=== PATIENT | female | born 1995 | race Caucasian/White ===

== ENCOUNTER 2016-12-18 18:12 | Emergency (ER) | payer OTHER ==
[2016-12-18 20:10] LABS: Hematocrit 42.7 % (37.0-47.0); Hemoglobin 14.4 gm/dL (12.5-16.0); Mean Cell Volume 86.3 fl (78-100); Mean Corpuscular Hemoglobin 29.1 pg (27-31); Mean Corpuscular Hgb Conc 33.7 g/dl (32-36); Mean Platelet Volume 9.4 fl (6.0-9.5); Neutrophil # 5.8 K/mm3 (1.3-6.0); Platelet Count 272 K/mm3 (150-450); Red Blood Count 4.95 M/mm3 (4.2-5.4); Red Cell Distribution Width 12.5 % (11.5-14.0); White Blood Count 9.6 K/mm3 (4.0-10.5)
[2016-12-18 20:21] LABS: Albumin * 4.4 gm/dl (3.4-5.0); Anion Gap 15.5 mmol/L (6.8-13.8); BUN/Creatinine Ratio 20.9 (9.0-21.6); Bilirubin, Total 0.4 mg/dL (0.0-1.1); Ca. Corrected For Albumin 9.4 mg/dL (8.4-10.2); Carbon Dioxide 26.6 mmol/L (24-32.6); Potassium 4.1 mmol/L (3.4-4.6); Total Protein 8.5 gm/dL (6.2-8.2)
--- NOTE | 2016-12-18 20:41 | ERNOTE ---
Abdominal HPI - Narrative Date of Service: 12/18/16 - General Chief Complaint: Abdominal Pain Time Seen by Provider: 12/18/16 20:32 Source: patient Exam Limitations: no limitations - Immun/Allergies/Home Medications Immunizatons: IMMUNIZATION HX Immunizations Up to Date Yes History of Influenza Vaccine Yes Hx Pneumococcal Vaccination No Allergies/Adverse Reactions: Allergies No Known Allergies Allergy (Verified 11/13/15 18:47) Home Medications: HOME MEDICATIONS metFORMIN HCL [Glucophage] 500 mg PO DAILY 11/13/15 [Last Taken Unknown] Lamotrigine [Lamictal Xr] 25 mg PO DAILY 12/18/16 [Last Taken Unknown] Ondansetron [Zofran Odt] 4 mg PO Q6H PRN #14 tab 12/18/16 [Last Taken Unknown] - Pain Score Pain Score #1 Pain Score: 7 Abdominal Pain Onset Location: RUQ, other - R. back - History of Present Illness Narrative: 21yo, F, presents to ED for evaluation of RUQ pain present x1 week, pain is intermittently occurring. States pain present the entire day today, pain worsens with eating. She is also N/V this week, 1 episode of vomiting today and 1-4 episodes on several other days over the past week. Last BM today, normal soft stool. No diarrhea or constipation. Date (Duration): 12/12/16 Timing: getting worse Quality: cramping, stabbing - intermittent Modifying Factors - (Improves): Present: other - nothing Modifying Factors - (Worsens): Present: eating Associated Symptoms: Present: fever/chills - subjective fever, nausea, vomiting. Absent: heartburn, shortness of breath Prior Abdominal Problems: Present: none Review of Systems - Review of Systems Constitutional: Present: fever - subjective, chills ENT: Absent: nose congestion, sore throat Respiratory: Absent: shortness of breath, cough, wheezing Cardiology: Absent: chest pain Gastrointestinal/Abdominal: Present: nausea, vomiting, abdominal pain. Absent: diarrhea, constipation Genitourinary: Absent: frequency, pain, dysuria, hematuria, discharge Musculoskeletal: Present: back pain - R. back Skin: Absent: rash - Patient's Past Medical History Patient History - Medical: Anxiety, Depression, Headache, Migraines Patient History - Cancer: No Hx of Cancer Patient History - Surgical Procedures: No surgical history - Family History Mother Family History - Medical: Depression Family History - Cardiac/Respiratory: No pertinent hx Father Family History - Medical: No pertinent hx Family History - Cardiac/Respiratory: Hypertension - Social History Living Situations: home Smoking Status: Never smoker Physical Exam - Physical Exam General Appearance: Present: wd/wn, alert, no apparent distress Respiratory: Present: normal breath sounds, no accessory muscle use, lungs clear. Absent: crackles, rhonchi, wheezing Cardiovascular/Chest: Present: regular rate, rhythm, no murmur Gastrointestinal/Abdominal: Present: normal bowel sounds, nondistended, soft, tenderness - RUQ Back Exam: Present: CVA tenderness (R) - mild Skin Exam: Present: normal color, warm/dry ED Progress - Date and Time Seen: Date and Time: 12/18/16 22:30 Awaiting US results. Reviewed POC with mtr and pt, they will call tomorrow to schedule f/u with her PCP next week. She will return to ER if symptoms worsen. Report given to Dr. Valdes - Results and Orders Patient's Lab Results:: I have reviewed the patient's lab results. - Vital Signs Patient's Vital Signs:: I have reviewed the patient's vital signs. Vital Signs: Vital Signs 12/18/16 18:38 Temperature 37.3 C Pulse Rate 100 Respiratory 18 Rate Blood Pressure 137/78 O2 Sat by Pulse 100 Oximetry - Progress/Reassessment Chief Complaint: Abdominal Pain - Transfer of Care Physician Sign Out: Juju Villaseñor Brief History: RUQ abd pain x1 week, n/v. Symptoms worse with eating. 1+ bacteria on urine, but no urinary symptoms. awaiting US reading Pending Results: X-ray results - ultrasound Expected Disposition: Discharge Departure - Departure Clinical Impression: Abdominal pain Qualifiers: Abdominal location: right upper quadrant Qualified Code(s): R10.11 - Right upper quadrant pain Condition: Good Instructions: Abdominal Pain, Adult, [id number] Referrals: Reji Rosario MD [Primary Care Provider] - Prescriptions: Ondansetron [Zofran Odt] 4 mg PO Q6H PRN #14 tab PRN Reason: Nausea And Vomiting
[2016-12-18 20:49] LABS: Urine Bilirubin Negative (NEGATIVE); Urine Blood Negative /ul (NEGATIVE); Urine Ketone Negative (NEGATIVE); Urine Nitrite Negative (NEGATIVE); Urine Protein 15 mg/dL (NEGATIVE); Urine Specific Gravity >=1.030 SP.GR. (1.005-1.010); Urine Urobilinogen Normal (NORMAL)
[2016-12-18] MEDS ORDERED: PROMETHAZINE HCL 25 MG/ML AMPUL IM ONE (20:50)
[2016-12-18] MEDS ORDERED: PROMETHAZINE HCL 25 MG/ML AMPUL ONE (20:55)
[2016-12-18 21:00] LABS: Urine Appearance Clear; Urine Bacteria 1+; Urine Color Yellow; Urine Mucus Many - 3+; Urine Other Crystal Moderate - 2+ /hpf; Urine RBC None Seen /hpf (0-5); Urine WBC None Seen /hpf (0-5)
[2016-12-18] MEDS ORDERED: CIPROFLOXACIN HCL 250 MG TABLET PO ONE (22:07)
[2016-12-18 22:37] VITALS: BP 110/51
[2016-12-18] MEDS ORDERED: ONDANSETRON 4 MG TAB.RAPDIS PO ONE (22:44)
[2016-12-18] MEDS ORDERED: HYDROcodone/ACETAMINOPHEN 1 EACH TABLET PO ONE (22:45)
[2016-12-18] MEDS ORDERED: HYDROcodone/ACETAMINOPHEN 1 EACH TABLET ONE (22:46)
[2016-12-18] MEDS ORDERED: ONDANSETRON 4 MG TAB.RAPDIS ONE (22:46)
== END 2016-12-18 23:22 | disposition home or self-care (01) ==
LOC: ER 18:12
DX: R10.11 Right upper quadrant pain (principal)

== ENCOUNTER 2017-02-04 15:10 | Emergency (ER) | payer OTHER ==
--- OUTSIDE RECORDS SUMMARY | 2017-02-04 15:36 | XMS REPORT | Continuity of Care Document ---
:1995 Author Organization [facility] ([facility]) Address [address] [place] [address] Phone [phone] Care Team Providers Name Role Phone Marlene Reji Primary Care Provider [phone] Source Comments This disclosure is being made pursuant to the Care Everywhere program, applicable federal and state laws, and may not contain all informaitonavailable regarding this patient.[facility] ([facility]) Active Allergies and Adverse Reactions Not on File Current Medications Not on file Active Problems Not on file Social History Tobacco Use Types Packs/Day Years Used Date Never Assessed Plan of Care Health Maintenance Due Date Last Done Comments Hepatitis B Vaccine (1 of 3 - Primary Series) 1995 HPV Vaccine (1 of 3 - Female/Unknown 3 Dose Series) 2006 Tdap Vaccine 2006 Meningococcal Vaccine (1 of 1) 2011 Cervical Cancer Screening 2013 Lipid Disorder Screening 2013 MMR Vaccine 2013 Td Vaccine 2013 Varicella Vaccine (1 of 2 - Adult - No Evidence of 2013 Immunity) Influenza Vaccine: Seasonal (#1) 06/30/2016 Results from Last 3 Months Not on file
--- OUTSIDE RECORDS SUMMARY | 2017-02-04 15:36 | XMS REPORT | Continuity of Care Document ---
:1995 Author Organization [facility] [place] [address] Care Team Providers Name Role Phone Reji Rosario Primary Care Provider [phone] Source Comments This disclosure is being made pursuant to the [employer] program and maynot contain all information available regarding this patient.[facility] Active Allergies and Adverse Reactions No Known Allergies Current Medications Be aware that medications may not be up to date as of this document. Alwaysverify current medications with the patient. Prescription Sig. Disp. Refills Start Date End Date Status ALPRAZolam (XANAX) Take 0.25 mg by Active 0.25 MG tablet mouth 3 (three) times daily as needed for Sleep. SUMAtriptan succinate Take 50 mg by Active (IMITREX) 50 MG tablet mouth as needed for Migraine. metFORMIN (GLUCOPHAGE) Take 500 mg by Active 500 MG tablet mouth 2 (two) times daily with meals. albuterol (PROAIR Inhale 2 puffs Active HFA;PROVENTIL into the lungs HFA;VENTOLIN HFA) 108 every 6 (six) (90 BASE) MCG/ACT hours as needed inhaler for Wheezing. FLUoxetine (PROZAC) 10 Take 1 capsule by 30 capsule 3 11/17/2015 Active MG capsule mouth every other day. Active Problems Problem Noted Date Depression 11/17/2015 Most Recent Encounters Date Type Specialty Providers Description 11/13/2016 Data Import Social History Tobacco Use Types Packs/Day Years Used Date Never Smoker Alcohol Use Drinks/Week oz/Week Comments No Last Filed Vital Signs Vital Sign Reading Time Taken Blood Pressure 149/92 11/17/2015 8:01 AM SLUMBER ROOM ATTENDANT Pulse 107 11/17/2015 8:01 AM SLUMBER ROOM ATTENDANT Temperature 37.2 C (99 F) 11/17/2015 8:00 AM SLUMBER ROOM ATTENDANT Respiratory Rate 16 11/17/2015 8:00 AM SLUMBER ROOM ATTENDANT Height 1.702 m (5' 7") 11/14/2015 9:08 AM SLUMBER ROOM ATTENDANT Weight 105.053 kg (231 lb 9.6 oz) 11/15/2015 8:29 AM SLUMBER ROOM ATTENDANT Body Mass Index 36.27 11/15/2015 8:29 AM SLUMBER ROOM ATTENDANT Oxygen Saturation 100% 11/17/2015 8:00 AM SLUMBER ROOM ATTENDANT Plan of Care Health Maintenance Due Date Last Done Comments HPV Vaccine (9-26YO) (1 of 3 - Female 3 Dose Series) 2006 Chlamydia Screening 2011 Meningococcal Vaccine (1 of 1) 2011 Tetanus/Pertussis (1 - Tdap) 2014 Pap Smear 2016 Influenza Immunization (#1) 2016 Results from Last 3 Months Not on file
[2017-02-04] MEDS ORDERED: ONDANSETRON HCL/PF 2 MG/ML VIAL ONE (16:00)
--- NOTE | 2017-02-04 16:07 | ERNOTE ---
Abdominal HPI - Narrative Date of Service: 02/04/17 - General Chief Complaint: Abdominal Pain Time Seen by Provider: 02/04/17 15:28 Source: patient Exam Limitations: no limitations - Immun/Allergies/Home Medications Immunizatons: IMMUNIZATION HX Immunizations Up to Date Yes History of Influenza Vaccine Yes Hx Pneumococcal Vaccination No Allergies/Adverse Reactions: Allergies No Known Allergies Allergy (Verified 02/04/17 15:22) Home Medications: HOME MEDICATIONS metFORMIN HCL [Glucophage] 500 mg PO BID 11/13/15 [Last Taken Unknown] ALPRAZolam [Xanax] 0.125 - 0.25 mg PO TID PRN 02/03/17 [Last Taken Unknown] Albuterol Sulfate [Ventolin HFA] 2 puff IH Q6H 02/03/17 [Last Taken Unknown] Lamotrigine [Lamictal] 100 mg PO DAILY 02/03/17 [Last Taken Unknown] SUMAtriptan SUCCINATE [Imitrex] 50 mg PO ONCE PRN 02/03/17 [Last Taken Unknown] Ondansetron [Zofran Odt] 4 mg PO Q6H PRN #20 tab 02/04/17 [Last Taken Unknown] - History of Present Illness Narrative: Pt. comes in with c/o intermittent RUQ pain for over a month and nausea and vomiting for two days. Pt. states taht if she tryies to eat anything the pain develops and then she is unable to keep any food down. Pt. denies any alleviating factors or prehospital treatment. Pt. denies any fevers, SOB, CP, diarrhea, constipation, or recent illness. Pt. states that she is scheduled to have her gallbladder removed on the by Dr Walker. Review of Systems - Review of Systems Constitutional: Present: no symptoms reported. Absent: recent illness, fever, chills, weakness, fatigue EYE: Present: no symptoms reported ENT: Present: no symptoms reported Respiratory: Present: no symptoms reported. Absent: shortness of breath, cough , wheezing Cardiology: Present: no symptoms reported. Absent: chest pain, palpitations, edema Gastrointestinal/Abdominal: Present: nausea, vomiting, abdominal pain. Absent: diarrhea, constipation Genitourinary: Present: no symptoms reported Musculoskeletal: Present: no symptoms reported. Absent: back pain, joint pain Skin: Present: no symptoms reported Neurological: Present: no symptoms reported. Absent: headache, dizziness/light- headedness, numbness, tingling All Other Systems: All systems neg except as marked - Patient's Past Medical History Patient History - Medical: Anxiety, Depression, Headache, Migraines Patient History - Cardiac/Respiratory: Asthma Patient History - Cancer: No Hx of Cancer Patient History - Surgical Procedures: No surgical history Patient History - Other: None - Family History Mother Family History - Medical: Depression Family History - Cardiac/Respiratory: No pertinent hx Father Family History - Medical: No pertinent hx Family History - Cardiac/Respiratory: Hypertension - Social History Living Situations: home Psych History: Hx of Anxiety, Hx of Depression, Hx of Bipolar Disorder - Immunizations Immunizations Up to Date: Yes Hx Pneumococcal Vaccination: No History of Influenza Vaccine: Yes Physical Exam - Physical Exam General Appearance: Present: wd/wn, alert, no apparent distress Eye Exam: Normal inspection: bilateral, PERRL: bilateral, EOMI: bilateral Ears, Nose, Throat: Present: normal ENT inspection, normal pharynx Neck: Present: normal inspection, nontender. Absent: lymphadenopathy (R), lymphadenopathy (L) Respiratory: Present: no respiratory distress, normal breath sounds, no accessory muscle use, chest nontender, lungs clear Cardiovascular/Chest: Present: regular rate, rhythm, no murmur, normal peripheral pulses Gastrointestinal/Abdominal: Present: normal bowel sounds, nondistended, soft, no organomegaly, tenderness - RUQ, Mcdermott sign. Absent: distended, McBurney sign, Obturator sign, Psoas sign, mass Back Exam: Present: normal inspection, normal range of motion, no CVA tenderness , no vertebral tenderness Extremity Exam: Present: normal inspection Neurological Exam: Present: alert, oriented, normal mood/affect, no motor/ sensory deficits Skin Exam: Present: normal color, warm/dry. Absent: pallor, skin rash ED Progress - Date and Time Seen: Date and Time: 02/04/17 17:15 Pt. improved with zofran and fluid feel that this is less to do with gallbladder as it does viral etiology so will send home with zofran. - Results and Orders Patient's Lab Results:: I have reviewed the patient's lab results. - Vital Signs Patient's Vital Signs:: I have reviewed the patient's vital signs. Vital Signs: Vital Signs 02/04/17 15:16 Temperature 37.1 C Pulse Rate 89 Respiratory 12 Rate Blood Pressure 151/87 O2 Sat by Pulse 100 Oximetry - Progress/Reassessment Chief Complaint: Abdominal Pain Progress:: Improved Departure - Departure Clinical Impression: Acute gastroenteritis Disposition: Home self-care Condition: Good Instructions: Viral Gastroenteritis, Adult, [id number] Additional Instructions: Please follow up with dr walker as planned Referrals: Reji Rosario MD [Primary Care Provider] - Prescriptions: Ondansetron [Zofran Odt] 4 mg PO Q6H PRN #20 tab PRN Reason: Nausea
[2017-02-04] MEDS: NORMAL SALINE 1,000 ML IV ONE (16:09)
[2017-02-04] MEDS: ONDANSETRON HCL/PF 2 MG/ML VIAL IV ONE (16:10)
[2017-02-04 16:18] LABS: Hematocrit 38.2 % (37.0-47.0); Hemoglobin 13.1 gm/dL (12.5-16.0); Mean Cell Volume 85.3 fl (78-100); Mean Corpuscular Hemoglobin 29.2 pg (27-31); Mean Corpuscular Hgb Conc 34.3 g/dl (32-36); Mean Platelet Volume 9.9 fl (6.0-9.5); Neutrophil % 59.7 % (42-75.0); Platelet Count 245 K/mm3 (150-450); Red Blood Count 4.48 M/mm3 (4.2-5.4); Red Cell Distribution Width 13.2 % (11.5-14.0); White Blood Count 8.4 K/mm3 (4.0-10.5)
[2017-02-04 16:28] LABS: Urine Bilirubin Negative (NEGATIVE); Urine Blood Negative /ul (NEGATIVE); Urine Ketone Negative (NEGATIVE); Urine Nitrite Negative (NEGATIVE); Urine Protein Negative (NEGATIVE); Urine Specific Gravity >=1.030 SP.GR. (1.005-1.010); Urine Urobilinogen Normal (NORMAL)
[2017-02-04 16:31] LABS: Urine Appearance Clear; Urine Color Yellow
[2017-02-04 16:32] LABS: Urine Bacteria 1+; Urine Mucus Few - 1+; Urine RBC None Seen /hpf (0-5); Urine WBC None Seen /hpf (0-5)
[2017-02-04 16:43] LABS: Albumin * 4.2 gm/dl (3.4-5.0); Anion Gap 15.8 mmol/L (6.8-13.8); BUN/Creatinine Ratio 22.2 (9.0-21.6); Bilirubin, Total 0.4 mg/dL (0.0-1.1); Ca. Corrected For Albumin 8.6 mg/dL (8.4-10.2); Calcium * 9.1 mg/dL (7.9-10.9); Carbon Dioxide 24.1 mmol/L (24-32.6); Potassium 3.9 mmol/L (3.4-4.6); Total Protein 7.8 gm/dL (6.2-8.2)
[2017-02-04 17:08] VITALS: BP 139/73
== END 2017-02-04 18:17 | disposition home or self-care (01) ==
LOC: ER 15:10
DX: K52.9 Noninfective gastroenteritis and colitis, unspecified (principal); F41.9 Anxiety disorder, unspecified

== ENCOUNTER 2017-02-16 11:58 | Day surgery (SDC) | payer OTHER ==
[~2017-02-16 11:58] MED LIST: RINGERS SOLUTION,LACTATED 1,000 ML IV PRN
--- OUTSIDE RECORDS SUMMARY | 2017-02-16 12:01 | XMS REPORT | Continuity of Care Document ---
:1995 Author Organization [facility] [place] [address] Care Team Providers Name Role Phone Reji Rosario Primary Care Provider [phone] Source Comments This disclosure is being made pursuant to the [employer] program and maynot contain all information available regarding this patient.[facility] Active Allergies and Adverse Reactions No Known [...] Active Problems Problem Noted Date Depression 11/17/2015 Social History Tobacco Use Types Packs/Day Years Used Date Never Smoker Alcohol Use Drinks/Week oz/Week Comments No Last Filed Vital Signs Vital Sign Reading Time Taken Blood Pressure 149/92 11/17/2015 8:01 AM WELFARE CENTRE MANAGER Pulse 107 11/17/2015 8:01 AM WELFARE CENTRE MANAGER Temperature 37.2 C (99 F) 11/17/2015 8:00 AM WELFARE CENTRE MANAGER Respiratory Rate 16 11/17/2015 8:00 AM WELFARE CENTRE MANAGER Height 1.702 m (5' 7") 11/14/2015 9:08 AM WELFARE CENTRE MANAGER Weight 105.053 kg (231 lb 9.6 oz) 11/15/2015 8:29 AM WELFARE CENTRE MANAGER Body Mass Index 36.27 11/15/2015 8:29 AM WELFARE CENTRE MANAGER Oxygen Saturation 100% 11/17/2015 8:00 AM WELFARE CENTRE MANAGER Plan of Care Health Maintenance Due Date Last Done Comments HPV Vaccine (9-26YO) (1 of 3 - Female 3 Dose Series) 2006 Chlamydia Screening 2011 Meningococcal Vaccine (1 of 1) 2011 Tetanus/Pertussis (1 - Tdap) 2014 Pap Smear 2016 Influenza Immunization (#1) 2016 Results from Last 3 Months Not on file
--- OUTSIDE RECORDS SUMMARY | 2017-02-16 12:01 | XMS REPORT | Continuity of Care Document ---
:1995 Author Organization [facility] ([facility]) Address [address] [place] [address] Phone [phone] Care Team Providers Name Role Phone Marlene Reji Primary Care Provider [phone] Source Comments This disclosure is being made pursuant to the Care Everywhere program, applicable federal and state laws, and may not contain all informaitonavailable regarding this patient.[facility] ([facility]) Active Allergies and Adverse Reactions Not on [...]
[2017-02-16] MEDS ORDERED: RINGERS SOLUTION,LACTATED 1,000 ML IV ONE ×2 (12:45→14:10)
[2017-02-16] MEDS ORDERED: ceFAZolin SODIUM 1 GM VIAL IV ONE (13:05)
[2017-02-16] MEDS ORDERED: BUPIVACAINE HCL/EPINEPHRINE 50 ML VIAL IJ ONE ×2 (13:52)
[2017-02-16] MEDS ORDERED: MUPIROCIN 22 APPL TUBE TP ONE (13:53)
[2017-02-16] MEDS ORDERED: oxyCODONE HCL/ACETAMINOPHEN 1 TAB TABLET PO PRN (15:23)
[2017-02-16] MEDS ORDERED: MORPHINE SULFATE 2 MG/ML DISP.SYRIN IV PRN (15:24)
[2017-02-16 17:01] VITALS: BP 122/72
--- NOTE | 2017-02-16 17:20 | OR ---
Operative Report - Dictated Report Narrative: DATE OF OPERATION: 02/16/2017 PREOPERATIVE DIAGNOSIS: Nausea. Biliary dyskinesia POSTOPERATIVE DIAGNOSIS: Normal EGD. Chronic cholecystitis (pathology pending) OPERATION: EGD with biopsy. Laparoscopic cholecystectomy SURGEON: MD Chaol Dias MD was also present for the procedure ANESTHESIA Gen. endotracheal Zohaib Ponce CRNA INDICATIONS FOR PROCEDURE: The patient is a 21-year-old female referred by Dr. Rosario. She has a two-month history of nausea and vomiting. Gallbladder ultrasound was normal however HIDA scan revealed decreased gallbladder ejection fraction and cause nausea and abdominal cramping. FINDINGS: Normal EGD (CLOtest pending). Evidence of chronic cholecystitis ( pathology pending) NARRATIVE OF PROCEDURE: The patient was identified preoperatively. Prior to the administration of anesthetic a multidisciplinary timeout observed. With the patient in the supine position, SCDs were placed, 2 g of intravenous Ancef administered, and general endotracheal anesthetic administered. EGD: The flexible fiberoptic gastroscope was advanced into the posterior pharynx which appeared normal. The endotracheal tube was seen to be in good position, and those portions of the supraglottic larynx visualized appeared normal. The scope was advanced under direct vision into the proximal esophagus which appeared normal. The esophagus appeared normal down to the gastroesophageal junction which was normal in appearance. The stomach was entered and insufflated with air. The gastric mucosa and submucosal vascular pattern appeared normal including a retroflexed view of the gastric fundus. The pylorus appeared patent. The scope was advanced into the duodenal bulb which appeared normal. The scope was advanced further to the horizontal portion of the duodenum which appeared normal, specifically the villous architecture appeared well preserved and clear bile was present. The scope was then slowly withdrawn through the duodenal bulb with confirmation that no active ulcer was present. The scope was withdrawn to the stomach and a bottling equipment sales representative biopsy obtained and submitted for CLOtest. The biopsy site appeared to be hemostatic. The insufflated air was removed, the scope was withdrawn from the patient and this portion of the procedure terminated. LAPAROSCOPIC CHOLECYSTECTOMY: The patient's abdomen was prepped with Betadine solution and a generous operating field outlined with 4 sterile towels. The remainder the patient was covered with a sterile disposable drape. An infraumbilical skin incision was made. Dissection was carried along the umbilical stalk until the fascia of the linea alba was encountered. This was incised. The peritoneum was then elevated and incised to allow entry into the abdomen under direct vision. A Hussan cannula was placed, and the abdomen insufflated with CO2. The laparoscopic camera was introduced and the abdomen briefly explored. Those portions of the liver, large intestine, omentum, and small bowel visualized appeared normal. The gallbladder was not immediately visible. Next under direct vision 3 additional working ports were inserted through separate skin incisions, one in the subxiphoid, one in the right upper quadrant, and one in the right flank. The apex of the gallbladder was retracted cephalad. There were several omental adhesions to the neck of the gallbladder indicating previous inflammation. These were lysed under direct vision down to the expected location of the cystic duct. The cystic duct was dissected free for a sufficient distance for confident identification. It was doubly clipped and divided. The cystic artery was identified doubly clipped and divided. The gallbladder was then removed from the liver bed by retrograde electrocautery dissection. Prior to severing the last attachments of the gallbladder the liver bed was inspected and found to be hemostatic with no evidence of bile leak. The previously placed clips were seen to be intact. The right upper quadrant was suctioned clean. The last attachments of the gallbladder were divided. It was placed in an Endobag and parked in the right upper quadrant. The smaller working ports were withdrawn under direct vision to ensure entry site hemostasis. The gallbladder was removed in conjunction with the Hussan cannula. The pneumoperitoneum was allowed to escape, and after receiving a correct sponge needle and instrument count attention was turned to closing the abdomen. The fascia and peritoneum at the umbilicus were approximated with interrupted sutures of #1 Vicryl. Skin incisions were approximated with interrupted vertical mattress sutures of 4-0 nylon. The operative sites were washed and dried. Dressings of Bactroban ointment and large Band-Aids were applied to the small port sites. The umbilical incision was dressed with Bactroban ointment, 2 x 2, large Band-Aid and Medipore tape. The operative procedure was terminated at this point. The patient tolerated the anesthetic and procedure well without complication. There was no measurable blood loss. The gallbladder was submitted to pathology. 0.5% Marcaine with epinephrine was used for local anesthetic infiltration. The patient was transferred to the recovery room awake, extubated, and in stable condition. The patient remained stable throughout a period of postoperative observation. She was able to tolerate po intake and was up without assistance. Her pain was controlled with po Percocet. Her dressings remained dry. I reviewed the operative findings with her and her mother and she was given copies of the photographs which appear in the medical record. The patient was discharged home with instructions not to lift and not to drive. She is to leave the current dressing dry and intact for 48 hours, but then may shower and change the dressing daily or as needed. She was given phone numbers to call if necessary for signs of wound infection or hematoma. The patient was given a prescription for Percocet 5/325 mg #30 1-2 PO Q4-6hrs prn pain. A return office appointment was made for 02/23/2017. Reviewed and electronically signed
== END 2017-02-16 11:59 | disposition home or self-care (01) ==
LOC: AMB 11:58
PROVIDERS: ATTEND Surgery
PROC: 0FT44ZZ Resection of Gallbladder, Percutaneous Endoscopic Approach (ICD-10-PCS; principal; 2017-02-16 12:55)
PROC: 0DB68ZX Excision of Stomach, Via Natural or Artificial Opening Endoscopic, Diagnostic (ICD-10-PCS; 2017-02-16 12:55)
DX: K81.1 Chronic cholecystitis (principal); E03.9 Hypothyroidism, unspecified; F41.1 Generalized anxiety disorder; F32.9 Major depressive disorder, single episode, unspecified; F98.8 Other specified behavioral and emotional disorders with onset usually occurring in childhood and adolescence; J45.909 Unspecified asthma, uncomplicated; Z68.34 Body mass index [BMI] 34.0-34.9, adult

== ENCOUNTER 2017-05-09 13:45 | Emergency (ER) | payer OTHER ==
[2017-05-09 14:27] LABS: Hematocrit 39.1 % (37.0-47.0); Hemoglobin 13.5 gm/dL (12.5-16.0); Mean Cell Volume 85.6 fl (78-100); Mean Corpuscular Hemoglobin 29.5 pg (27-31); Mean Corpuscular Hgb Conc 34.5 g/dl (32-36); Mean Platelet Volume 8.9 fl (6.0-9.5); Neutrophil # 5.1 K/mm3 (1.3-6.0); Neutrophil % 64.1 % (42-75.0); Platelet Count 273 K/mm3 (150-450); Red Blood Count 4.57 M/mm3 (4.2-5.4); Red Cell Distribution Width 12.2 % (11.5-14.0); White Blood Count 7.9 K/mm3 (4.0-10.5)
[2017-05-09 14:44] LABS: Albumin * 3.9 gm/dl (3.4-5.0); Anion Gap 13.6 mmol/L (6.8-13.8); BUN/Creatinine Ratio 16.7 (9.0-21.6); Bilirubin, Total 0.3 mg/dL (0.0-1.1); Ca. Corrected For Albumin 9.4 mg/dL (8.4-10.2); Calcium * 9.6 mg/dL (7.9-10.9); Carbon Dioxide 29.6 mmol/L (24-32.6); Potassium 4.2 mmol/L (3.4-4.6); Total Protein 8.1 gm/dL (6.2-8.2)
--- OUTSIDE RECORDS SUMMARY | 2017-05-09 14:46 | XMS REPORT | Continuity of Care Document ---
:1995 Author Organization [facility] [place] [address] Care Team Providers Name Role Phone Reji Rosario Primary Care Provider [phone] Source Comments This disclosure is being made pursuant to the [facility] program and maynot contain all information available regarding this patient.[facility] Active Allergies and Adverse Reactions No Known [...] Taken Blood Pressure 149/92 11/17/2015 8:01 AM HOME SALES SERVICE PROFESSIONAL Pulse 107 11/17/2015 8:01 AM HOME SALES SERVICE PROFESSIONAL Temperature 37.2 C (99 F) 11/17/2015 8:00 AM HOME SALES SERVICE PROFESSIONAL Respiratory Rate 16 11/17/2015 8:00 AM HOME SALES SERVICE PROFESSIONAL Height 1.702 m (5' 7") 11/14/2015 9:08 AM HOME SALES SERVICE PROFESSIONAL Weight 105.053 kg (231 lb 9.6 oz) 11/15/2015 8:29 AM HOME SALES SERVICE PROFESSIONAL Body Mass Index 36.27 11/15/2015 8:29 AM HOME SALES SERVICE PROFESSIONAL Oxygen Saturation 100% 11/17/2015 8:00 AM HOME SALES SERVICE PROFESSIONAL Plan of Care Health Maintenance Due Date Last Done Comments HPV Vaccine (9-26YO) (1 of 3 - Female 3 Dose Series) 2006 Chlamydia Screening 2011 Meningococcal Vaccine (1 of 1) 2011 Tetanus/Pertussis (1 - Tdap) 2014 Pap Smear 2016 Influenza Immunization (#1) 2016 Results from Last 3 Months Not on file
--- OUTSIDE RECORDS SUMMARY | 2017-05-09 14:46 | XMS REPORT | Continuity of Care Document ---
:1995 Author Organization [facility] ([facility]) Address [address] [place] [address] Phone [phone] Care Team Providers Name Role Phone Marlene Reji Primary Care Provider [phone] Source Comments This disclosure is being made pursuant to the Care Everywhere program, applicable federal and state laws, and may not contain all informaitonavailable regarding this patient.[facility] ([facility]) Active Allergies and Adverse Reactions Not on [...]
--- NOTE | 2017-05-09 15:49 | ERNOTE ---
Date of Service: 05/09/17 Time Seen by Provider: 05/09/17 13:58 Stated Complaint: HEAVY CHEST,HEADACHES,N/V,DIZZY Presenting Symptoms:: cough Source: patient Exam Limitations: no limitations Immunizations: IMMUNIZATION HX Immunizations Up to Date Yes History of Influenza Vaccine No Hx Pneumococcal Vaccination No Allergies/Adverse Reactions: Allergies No Known Allergies Allergy (Verified 05/09/17 13:55) Home Medications: HOME MEDICATIONS metFORMIN HCL [Glucophage] 500 mg PO BID 11/13/15 [Last Taken Unknown] ALPRAZolam [Xanax] 0.125 - 0.25 mg PO TID PRN 02/03/17 [Last Taken Unknown] Albuterol Sulfate [Ventolin HFA] 2 puff IH Q6H 02/03/17 [Last Taken Unknown] Lamotrigine [Lamictal] 100 mg PO DAILY 02/03/17 [Last Taken Unknown] Ondansetron [Zofran Odt] 4 mg PO Q6H PRN #20 tab 02/04/17 [Last Taken Unknown] Azithromycin [Zithromax] 500 mg PO NOW #6 tab 05/09/17 [Last Taken Unknown] - History of Present Ilness Narrative: Patient presents to the ED for cough. She has been sick since Thursday of this week. Primary Sx is cough. She also has left sided ear ache and mild ST. She was at work and was feeling dizzy from coughing so hard. SHe denies abdominal pain. Has felt feverish. SHe has intermittent [place] but nothign acute. The reasons she came in was she was dizzy at work from coughing. No rash. Timing: constant Frequency/Possible Cause: Reports: other - no other clear sick contacts Modifying Factors - Improves: Reports: nothing Modifying Factors - Worsens: Reports: nothing Associated Symptoms: Reports: cough, earache. Denies: shortness of breath, lightheadedness Prior Treatment: Denies: recently seen Review of Systems - Review of Systems Constitutional: Absent: chills ENT: Present: ear pain Respiratory: Present: cough Cardiology: Absent: chest pain Gastrointestinal/Abdominal: Absent: vomiting Neurological: Absent: weakness - Patient's Past Medical History Patient History - Medical: Anxiety, Depression, Hypothyroidism, Migraines, Other Patient History - Cardiac/Respiratory: Asthma Patient History - Cancer: No Hx of Cancer Patient History - Surgical Procedures: Ear Tubes, Other Patient History - Other: None LMP (females 10-50): now LMP (Calendar): 02/15/17 - Family History Mother Family History - Medical: Depression Family History - Cardiac/Respiratory: No pertinent hx Family History - Cancer: No pertinent family hx Father Family History - Medical: No pertinent hx Family History - Cardiac/Respiratory: Hypertension Family History - Cancer: No pertinent family hx - Social History Living Situations: home Abuse History: No History of abuse Psych History: Hx of Anxiety, Hx of Depression, Hx of Bipolar Disorder, Current tx/ever been on anti-depressants or anti-anxiety meds Smoking Status: Never smoker Alcohol Use: occasionally Drug Use: none - Immunizations Immunizations Up to Date: Yes Hx Pneumococcal Vaccination: No History of Influenza Vaccine: No Physical Exam - Physical Exam General Appearance: Present: alert, no apparent distress, other - frequent harsh cough. Well hydrated, non-toxic, no distress. Speaking in full sentences. Eye Exam: Normal inspection: bilateral, PERRL: bilateral Ears, Nose, Throat: Present: other - Left TM erythema. No CORN HUSKER, RPA or epiglottitis. 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 - Vital Signs Patient's Vital Signs:: I have reviewed the patient's vital signs. Vital Signs: Vital Signs 05/09/17 05/09/17 13:49 14:50 Temperature 37.1 C 36.9 C Pulse Rate 106 H 100 Respiratory 18 16 Rate Blood Pressure 150/97 145/87 O2 Sat by Pulse 98 99 Oximetry - X-Ray X-Ray #1 X-Ray: chest Interpretation: Interp. by me X-ray Comments: No acute pulm process. X-rays not being read in real-time as is a weekend. - Progress/Reassessment Chief Complaint: Cough Progress Note-Subjective: 05/09/17 15:46 Clinically URI without hypoxia, dehydration or distress. Will treat with ABx for bronchitis and inhaler. No wheezing, no distress. no indication for steroids. i discussed warning signs and reasons to return as well as the need for close f/u. Departure - Departure Clinical Impression: Cough Disposition: Home self-care Condition: Stable Instructions: Cough, Adult, [id number] Additional Instructions: Rest. Fluids. Follow-up with your doctor Thursday for a re-check. Antibiotics as directed. Return here for trouble breathing, vomiting or if your condition worsens or changes in any way. No Zofran while taking antibiotics. Referrals: Reji Rosario MD [Primary Care Provider] - Prescriptions: Azithromycin [Zithromax] 500 mg PO NOW #6 tab
[2017-05-09 16:32] VITALS: BP 142/83
== END 2017-05-09 15:58 | disposition home or self-care (01) ==
LOC: ER 13:45
DX: R05 Cough (principal); F41.8 Other specified anxiety disorders; E03.9 Hypothyroidism, unspecified